=== PATIENT | male | born 1985 | race African-American/Black ===

== ENCOUNTER → 2020-01-19 | Outpatient (REF) | payer MEDICAID ==
[2020-01-19 13:42] LABS: ALBUMIN 3.8 GM/DL (3.2-5.2); ALT/SGPT 57 U/L (12-78); BILIRUBIN,TOTAL 0.3 MG/DL (0.2-1.0); BLOOD UREA NITROGEN 16 MG/DL (7-18); CALCIUM LEVEL 9.5 MG/DL (8.5-10.1); CARBON DIOXIDE LEVEL 31 MEQ/L (21-32); CHLORIDE LEVEL 101 MEQ/L (98-107); CHOLESTEROL LEVEL 208 MG/DL (<200); CHOLESTEROL RISK RATIO 3.525 (<5); CREATININE FOR GFR 1.16 MG/DL (0.70-1.30); FREE T4 1.24 NG/DL (0.76-1.46); GLOMERULAR FILTRATION RATE > 60.0 (>60); GLUCOSE, FASTING 168 MG/DL (70-100); HDL CHOLESTEROL 59 MG/DL (>40); LDL CHOLESTEROL 131 MG/DL (<100); NON-HDL-C 149 MG/DL; POTASSIUM SERUM 4.8 MEQ/L (3.5-5.1); SODIUM LEVEL 137 MEQ/L (136-145); TRIGLYCERIDES LEVEL 91 MG/DL (<150)
== END ==
LOC: M LAB REF 11:32
PROVIDERS: ATTEND Family Medicine Addiction Medicine
DX: R73.02 Impaired glucose tolerance (oral) (principal); G47.33 Obstructive sleep apnea (adult) (pediatric); I10 Essential (primary) hypertension

== ENCOUNTER → 2020-02-06 | Outpatient (CLI) | payer OTHER ==
--- NOTE | 2020-02-12 11:32 | SLEEPHOME ---
DATE: 02/06/2020 ORDERED BY: Dr. Ragsdale [facility] home sleep testing was performed due to concern for the obstructive sleep apnea syndrome in this patient with a prior history of same. For testing, a nocturnal T3 respiratory monitoring device was used. Continuous record was made of pulse, oxygen saturation, air flow, chest and abdominal strain, and body position. Nine hours and 59 minutes of data were reviewed. There were 5 hours and 49 minutes marked as time in bed. During the interval marked time in bed, there were 372 respiratory events identified of 10 seconds in duration or greater for a respiratory event index of 63.9. The events were primarily obstructive, not exclusive to sleep posture. Baseline pulse rate was 93. Pulse rate ranged 29- 112. Baseline saturation was 90%. Oxygen desaturations were seen to 59%. Testing was performed in both the supine and nonsupine positions. IMPRESSION: Abnormal home sleep testing with repetitive respiratory events and oxygen desaturations to 59% with a respiratory event index of 63.9 is consistent with the obstructive sleep apnea syndrome. RECOMMENDATION: The patient should be encouraged to undergo a formal sleep evaluation and pressure titration. MTDD
== END ==
LOC: M SLEEP HO 01-31 11:59
PROVIDERS: ATTEND Internal Medicine Pulmonary Disease
DX: G47.33 Obstructive sleep apnea (adult) (pediatric) (principal)

== ENCOUNTER 2020-02-16 09:31 | Emergency (ER) | payer OTHER ==
[~2020-02-16] VITALS: Ht 198.1 cm; Wt 177.6 kg
[2020-02-16] MEDS ORDERED: HYDR25TAB PO (09:45)
[2020-02-16] MEDS ORDERED: NORV5TAB PO (09:45)
[2020-02-16] MEDS ORDERED: METF500T13 PO (09:45)
--- NOTE | 2020-02-16 10:24 | REPVR ---
PROCEDURE INFORMATION: Exam: CT Head Without Contrast Exam date and time: 02/16/2020 9:54 AM Age: 34 years old Clinical indication: Numbness / parasthesia; Left; Additional info: Paralysis of L side of face TECHNIQUE: Imaging protocol: Computed tomography of the head without contrast. Radiation optimization: All CT scans at this facility use at least one of these dose optimization techniques: automated exposure control; mA and/or kV adjustment per patient size (includes targeted exams where dose is matched to clinical indication); or iterative reconstruction. COMPARISON: No relevant prior studies available. FINDINGS: Brain: There is no acute intracranial hemorrhage. No extra-axial fluid collection. No evidence of acute infarct. Nguyen white differentiation is intact. There is no evidence of mass. There is no mass effect or midline shift. Cerebral ventricles: No ventriculomegaly. Bones/joints: No acute fracture. Paranasal sinuses: Visualized sinuses are unremarkable. No fluid levels. Mastoid air cells: No significant mastoid effusion. Soft tissues: Unremarkable as visualized. IMPRESSION: No evidence of acute intracranial abnormality. No acute hemorrhage. No evidence of acute infarct or mass. Electronically signed by: Terri Branch On 02/16/2020 10:25:03 AM
[2020-02-16] MEDS ORDERED: PRED20TA PO (10:38)
[2020-02-16 11:26] LABS: BASO # 0.1 10^3/uL (0.0-0.2); BASO % 0.7 % (0.0-1.0); EOS # 0.3 10^3/uL (0.0-0.5); EOS % 2.8 % (0.0-3.0); HEMATOCRIT 50.9 % (42.0-52.0); HEMOGLOBIN 15.9 g/dl (13.5-17.5); LYMPH # 3.3 10^3/uL (1.5-5.0); LYMPH % 32.1 % (24.0-44.0); MEAN CORPUSCULAR HGB CONC 31.2 g/dl (32.0-36.5); MEAN CORPUSCULAR VOLUME 80.2 fl (80.0-96.0); MONO # 0.9 10^3/uL (0.0-0.8); MONO % 8.7 % (0.0-5.0); NEUTROPHILS # 5.7 10^3/uL (1.5-8.5); NEUTROPHILS % 55.3 % (36.0-66.0); PLATELET COUNT, AUTOMATED 402 10^3/uL (150-450); RED BLOOD COUNT 6.35 10^6/uL (4.30-6.10); WHITE BLOOD COUNT 10.2 10^3/uL (4.0-10.0)
[2020-02-16 11:54] LABS: ERYTHROCYTE SEDIMENTATION RATE 17 mm/hr (0-15)
[2020-02-16 12:00] LABS: BLOOD UREA NITROGEN 18 MG/DL (7-18); CALCIUM LEVEL 9.5 MG/DL (8.5-10.1); CARBON DIOXIDE LEVEL 27 MEQ/L (21-32); CHLORIDE LEVEL 101 MEQ/L (98-107); CREATININE FOR GFR 0.93 MG/DL (0.70-1.30); GLOMERULAR FILTRATION RATE > 60.0 (>60); GLUCOSE, FASTING 130 MG/DL (70-100); POTASSIUM SERUM 3.9 MEQ/L (3.5-5.1); SODIUM LEVEL 136 MEQ/L (136-145); THYROID STIMULATING HORMONE 0.619 uIU/ML (0.358-3.740)
[2020-02-16 12:11] VITALS: BP 151/91
== END 2020-02-16 12:16 | disposition home or self-care (01) ==
LOC: M ED 09:31
DX: G51.0 Bell's palsy (principal); E11.9 Type 2 diabetes mellitus without complications; E78.5 Hyperlipidemia, unspecified; I10 Essential (primary) hypertension; F17.200 Nicotine dependence, unspecified, uncomplicated; F12.10 Cannabis abuse, uncomplicated; Z79.84 Long term (current) use of oral hypoglycemic drugs; Z79.899 Other long term (current) drug therapy

== ENCOUNTER 2020-04-17 11:03 | Emergency (ER) | payer OTHER ==
[~2020-04-17] VITALS: Ht 198.1 cm; Wt 169.8 kg
[~2020-04-17 11:03] MED LIST: HYDR-3490 PO; METF500T13 PO; NORV5TAB PO; PRED20TA PO
--- OUTSIDE RECORDS SUMMARY | 2020-04-17 11:12 | CCD ---
Author Organization Unknown Address [address] [place] [address] Phone [phone] Care Team Providers Care Software Developer Manager Name Role Phone Autumn Vivas Unavailable Unavailable Allergies Code Code System Name Reaction Severity Status Onset NKDA Medications Name Status Start Date Stop Date Accu-Chek Judy Plus test strips Take 1 strip by miscell. route. Active Not ottoniel ilable amlodipine 5 mg tablet Take 1 tablet every day by oral route. Active Not available amoxicillin 500 mg capsule TAKE ONE CAPSULE BY MOUTH EVERY 8 HOURS UNTIL FINISHED Completed 02/05/2020 hydrochlorothiazide 25 mg tablet TAKE ONE TABLET BY MOUTH EVERY DAY Completed 11/2019 lisinopril 20 mg tablet TAKE ONE TABLET BY MOUTH EVERY DAY Active Not available metformin 500 mg tablet Take 1 tablet twice a day by oral route. 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 Results Lab Results Date Name Specimen Result Interpretation Description Value Range Status Address 01/30/2020 HbA1C (Hemoglobin a1C), Blood Blood venous No observation recorded. Main [facility] doretha: [address] [facility] 01/19/2020 CMP, Serum or Plasma Blood venous High Glu cose, Fasting 168 mg/dL 70-100 mg/dL [facility] nter: [address] [facility] Blood venous Normal Blood Urea Nitrogen 16 mg/dL 7-18 mg/dL [facility]: [address] [facility] Blood venous Normal Creatinine for GFR 1.16 mg/dL 0.70-1.30 mg/dL [facility]: [address] [facility] Blood venous Normal Glomerular Filtration Rate > 60.0 >60 [facility]: [address] [facility] Blood venous Normal Sodium Level 137 mEq/L 136-14 5 mEq/L [facility]: [address] [facility] Blood venous Normal Potassium Serum 4.8 mEq/L 3.5 -5.1 mEq/L [facility]: [address] [facility] Blood venous Normal Chloride Level 101 mEq/L 98-1 07 mEq/L [facility]: [address] [facility] Blood venous Normal Carbon Dioxide Level 31 mEq/L 21-32 mEq/L [facility]: [address] [facility] Blood venous Low Anion Gap 5 mEq/L 8-16 mEq/L [facility]: [address] [facility] Blood venous Normal Calcium Level 9.5 mg/dL 8.5-1 0.1 mg/dL [facility]: [address] [facility] Blood venous Normal AST/SGOT 31 U/L 7-37 U/L [facility]: [address] [place] [address] Blood venous Normal ALT/SGPT 57 U/L 12-78 U/L [facility]: [address] [facility] Blood venous Normal Alkaline Phosphatase 93 U/L 4 5-117 U/L [facility]: 0 [facility] Blood venous Normal Bilirubin,total 0.3 mg/dL 0.2 -1.0 mg/dL [facility]: [address] [place] [address] Blood venous Normal Total Protein 8.0 gm/dL 6.4-8 .2 gm/dL [facility]: [address] [place] [address] Blood venous Normal Albumin 3.8 gm/dL 3.2-5.2 gm/ dL [facility]: [address] [place] [address] Blood venous Normal Albumin/globulin Ratio 0.9 [facility]: [address] [place] [address] 01/19/2020 Lipid Panel, Blood Blood venous Normal Trigl ycerides Level 91 mg/dL <150 mg/dL [facility] nter: [address] [facility] Blood venous High Cholesterol Level 208 mg/dL < 200 mg/dL [facility]: 0 [facility] Blood venous Normal HDL Cholesterol 59 mg/dL >40 mg/dL [facility]: [address] [facility] Blood venous High LDL Cholesterol 131 mg/dL <10 0 mg/dL [facility]: [address] [place] [address] Blood venous Normal Non-hdl-c 149 mg/dL Fi nal [facility]: [address] [facility] Blood venous Normal Cholesterol Risk Ratio 3.525 <5 [facility]: [address] [place] [address] 01/19/2020 TSH, Serum or Plasma Normal Thyroid Stimulating Hormone 1.190 uIU/mL 0.358-3.740 uIU/mL [facility] nter: [address] [place] [address] 01/19/2020 T4, Free, Serum Normal Free T4 1.24 NG/dL 0.76-1.46 NG/dL [facility]: [address] [place] [address] 01/19/2020 HbA1C (Hemoglobin a1C), Blood Blood venous Normal Hemoglobin a1C 8.0 % [facility]: [address] [place] [address] Blood venous High Estimated Average Glucose 183 mg/dL 60-110 mg/dL [facility]: [address] [place] [address] Past Encounters 02/05/2020 Type 2 Diabetes Mellitus without Complication; Hypertensive Disorder Matt Spain MD: [address] [place] [phone], Ph. 01/19/2020 Matt Spain MD: [address] [place] [phone], Ph. Social History Tobacco Smoking Status Heavy Tobacco Smoker (1 PPD) Vaccine List None recorded. Plan of Care Reminders Provider Appointments None recorded. Lab None recorded. Referral None recorded. Procedures None recorded. Surgeries None recorded. Imaging None recorded. Vitals Height Weight BMI Blood Pressure 78 in 401 lbs 16 oz 46.5 kg/m2 146/89 mm[Hg]
--- OUTSIDE RECORDS SUMMARY | 2020-04-17 11:13 | CCD ---
Author Author [facility] Organization [facility] Address Unknown Phone Unavailable Care Team Providers Care Tight Barrel Inspector Name Role Phone [facility], JLAM Unavailable Unavailable Uday Spain MD Unavailable Unavailable Uday Spain MD Unavailable Unavailable Uday Spain MD Unavailable Unavailable Uday Spain MD Unavailable Unavailable Uday Spain MD Unavailable Unavailable Uday Spain MD Unavailable Unavailable Uday Spain MD Unavailable Unavailable Uday Spain MD Unavailable Unavailable Uday Spain MD Unavailable Unavailable Uday Spain MD Unavailable Unavailable Uday Spain MD Unavailable Unavailable Uday Spain MD Unavailable Unavailable Uday Spain MD Unavailable Unavailable Uday Spain MD Unavailable Unavailable Uday Spain MD Unavailable Unavailable Uday Spain MD Unavailable Unavailable Uday Spain MD Unavailable Unavailable Uday Spain MD Unavailable Unavailable Uday Spain MD Unavailable Unavailable Uday Spain MD Unavailable Unavailable Uday Spain MD Unavailable Unavailable Uday Spain MD Unavailable Unavailable Uday Spain MD Unavailable Unavailable Uday Spain MD Unavailable Unavailable Uday Spain MD Unavailable Unavailable Uday Spain MD Unavailable Unavailable Uday Spain MD Unavailable Unavailable Uday Spain MD Unavailable Unavailable Uday Spain MD Unavailable Unavailable Uday Spain MD Unavailable Unavailable Uday Spain MD Unavailable Unavailable Uday Spain MD Unavailable Unavailable Uday Spain MD Unavailable Unavailable Uday Spain MD Unavailable Unavailable Uday Spain MD Unavailable Unavailable Uday Spain MD Unavailable Unavailable Uday Spain MD Unavailable Unavailable Uday Spain MD Unavailable Unavailable Uday Spain MD Unavailable Unavailable Uday Spain MD Unavailable Unavailable Uday Spain MD Unavailable Unavailable Uday Spain MD Unavailable Unavailable Uday Spain MD Unavailable Unavailable Uday Spain MD Unavailable Unavailable Uday Spain MD Unavailable Unavailable Uday Spain MD Unavailable Unavailable Uday Spain MD Unavailable Unavailable Uday Spain MD Unavailable Unavailable Uday Spain MD Unavailable Unavailable Uday Spain MD Unavailable Unavailable Uday Spain MD Unavailable Unavailable Uday Spain MD Unavailable Unavailable Uday Spain MD Unavailable Unavailable Uday Spain MD Unavailable Unavailable Uday Spain MD Unavailable Unavailable Uday Spain MD Unavailable Unavailable Uday Spain MD Unavailable Unavailable Uday Spain MD Unavailable Unavailable Uday Spain MD Unavailable Unavailable Uday Spain MD Unavailable Unavailable Uday Spain MD Unavailable Unavailable Uday Spain MD Unavailable Unavailable Uday Spain MD Unavailable Unavailable Uday Spain MD Unavailable Unavailable Uday Spain MD Unavailable Unavailable Uday Spain MD Unavailable Unavailable Uday Spain MD Unavailable Unavailable Uday Spain MD Unavailable Unavailable Uday Spain MD Unavailable Unavailable Uday Spain MD Unavailable Unavailable Uday Spain MD Unavailable Unavailable Uday Spain MD Unavailable Unavailable Uday Spain MD Unavailable Unavailable Uday Spain MD Unavailable Unavailable Uday Spain MD Unavailable Unavailable Uday Spain MD Unavailable Unavailable Uday Spain MD Unavailable Unavailable Uday Spain MD Unavailable Unavailable Uday Spain MD Unavailable Unavailable Uday Spain MD Unavailable Unavailable Uday Spain MD Unavailable Unavailable Uday Spain MD Unavailable Unavailable Uday Spain MD Unavailable Unavailable Uday Spain MD Unavailable Unavailable Uday Spain MD Unavailable Unavailable Uday Spain MD Unavailable Unavailable Uday Spain MD Unavailable Unavailable Uday Spain MD Unavailable Unavailable Uday Spain MD Unavailable Unavailable Uday Spain MD Unavailable Unavailable Uday Spain MD Unavailable Unavailable Uday Spain MD Unavailable Unavailable Uday Spain MD Unavailable Unavailable Uday Spain MD Unavailable Unavailable Uday Spain MD Unavailable Unavailable Uday Spain MD Unavailable Unavailable Uday Spain MD Unavailable Unavailable Uday Spain MD Unavailable Unavailable Uday Spain MD Unavailable Unavailable Uday Spain MD Unavailable Unavailable Uday Spain MD Unavailable Unavailable Uday Spain MD Unavailable Unavailable Uday Spain MD Unavailable Unavailable Uday Spain MD Unavailable Unavailable Uday Spain MD Unavailable Unavailable Uday Spain MD Unavailable Unavailable Uday Spain MD Unavailable Unavailable Uday Spain MD Unavailable Unavailable Uday Spain MD Unavailable Unavailable Uday Spain MD Unavailable Unavailable Uday Sapin MD Unavailable Unavailable Uday Spain MD Unavailable Unavailable Uday Spain MD Unavailable Unavailable Uday Spain MD Unavailable Unavailable Uday Spain MD Unavailable Unavailable Uday Spain MD Unavailable Unavailable Uday Spain MD Unavailable Unavailable SpainUday MD Unavailable Unavailable SpainUday MD Unavailable Unavailable SpainUday MD Unavailable Unavailable SpainUday MD Unavailable Unavailable Uday Spain MD Unavailable Unavailable Uday Spain MD Unavailable Unavailable Uday Spain MD Unavailable Unavailable Uday Spain MD Unavailable Unavailable Uday Spain MD Unavailable Unavailable Uday Spain MD Unavailable Unavailable SpainUady MD Unavailable Unavailable SpainUday MD Unavailable Unavailable SpainUday MD Unavailable Unavailable Uday Spain MD Unavailable Unavailable Uday Spain MD Unavailable Unavailable Uday Spain MD Unavailable Unavailable Uday Spain MD Unavailable Unavailable Uday Spain MD Unavailable Unavailable Uday Spain MD Unavailable Unavailable Uday Spain MD Unavailable Unavailable Uday Spain MD Unavailable Unavailable Uday Spain MD Unavailable Unavailable Uday Spain MD Unavailable Unavailable Uday Spain MD Unavailable Unavailable Uday Spain MD Unavailable Unavailable Uday Spain MD Unavailable Unavailable Uday Spain MD Unavailable Unavailable Uday Spain MD Unavailable Unavailable Uday Spain MD Unavailable Unavailable Uday Spain MD Unavailable Unavailable Uday Spain MD Unavailable Unavailable Uday Spain MD Unavailable Unavailable Uday Spain MD Unavailable Unavailable Uday Spain MD Unavailable Unavailable Uday Spain MD Unavailable Unavailable Uday Spain MD Unavailable Unavailable Uday Spain MD Unavailable Unavailable Uday Spain MD Unavailable Unavailable Uday Spain MD Unavailable Unavailable Uday Spain MD Unavailable Unavailable Uday Spain MD Unavailable Unavailable Uday Spain MD Unavailable Unavailable Uday Spain MD Unavailable Unavailable Uday Spain MD Unavailable Unavailable Uday Spain MD Unavailable Unavailable Uday Spain MD Unavailable Unavailable Uday Spain MD Unavailable Unavailable Uday Spain MD Unavailable Unavailable Uday Spain MD Unavailable Unavailable Uday Spain MD Unavailable Unavailable Uday Spain MD Unavailable Unavailable Uday Spain MD Unavailable Unavailable Uday Spain MD Unavailable Unavailable Uday Spain MD Unavailable Unavailable Uday Spain MD Unavailable Unavailable Uday Spain MD Unavailable Unavailable Uday Spain MD Unavailable Unavailable Uday Spain MD Unavailable Unavailable Uday Spain MD Unavailable Unavailable Uday Spain MD Unavailable Unavailable Uday Spain MD Unavailable Unavailable Re-disclosure Warning The records that you are about to access may contain information from federally-assisted alcohol or drug abuse programs. If such information is present, then the following federally mandated warning applies: This information has been disclosed to you from records protected by federal confidentiality rules (42 CFR part 2). The federal rules prohibit you from making any further disclosure of this information unless further disclosure is expressly permitted by the written consent of the person to whom it pertains or as otherwise permitted by 42 CFR part 2. A general authorization for the release of medical or other information is NOT sufficient for this purpose. The Federal rules restrict any use of the information to criminally investigate or prosecute any alcohol or drug abuse patient.The records that you are about to access may contain highly sensitive health information, the redisclosure of which is protected by Article 27-F of the [facility] Public Health law. If you continue you may have access to information: Regarding HIV / AIDS; Provided by facilities licensed or operated by the [facility] Office of Mental Health; or Provided by the [facility] Office for People With Developmental Disabilities. If such information is present, then the following [facility] mandated warning applies: This information has been disclosed to you from confidential records which are protected by state law. State law prohibits you from making any further disclosure of this information without the specific written consent of the person to whom it pertains, or as otherwise permitted by law. Any unauthorized further disclosure in violation of state law may result in a fine or fci sentence or both. A general authorization for the release of medical or other information is NOT sufficient authorization for further disc losure. Encounters Encounter Providers Location Date Indications Data Source(s ) Matt Spain MD: [address] [place] [phone], Ph. Attender: Matt Spain MD [facility] Medical 02/05/2020 12:00:00 AM EST [facility]) Matt Spain MD: [address] [place] [phone], Ph. Attender: Matt Spain MD [facility] Medical 01/19/2020 12:00:00 AM EDT [facility] ([facility]) Outpatient Attender: Matt GA 01/18/2020 02:33:00 PM EDT [facility] Outpatient Attender: Matt BROOKS 01/11/2020 09:28:00 AM EDT [facility] Outpatient Attender: Matt BROOKS 01/11/2020 09:06:01 AM EDT [facility] Outpatient Attender: Matt BROOKS 01/11/2020 08:24:00 AM EDT [facility] Outpatient Attender: Matt BROOKS 01/11/2020 08:10:00 AM EDT [facility] Outpatient Attender: JEANETTE NG [facility] 01/11/2020 08:08:00 AM EDT [facility] Outpatient Attender: JEANETTE NC [facility] 12/21/2019 07:19:00 AM EDT [facility] Outpatient Attender: JEANETTE NG [facility] 12/20/2019 10:33:00 AM EDT [facility] Outpatient Attender: JEANETTE NC [facility] 12/20/2019 09:26:02 AM EDT [facility] Outpatient Attender: JEANETTE NG [facility] 12/20/2019 09:26:01 AM EDT [facility] Outpatient Attender: JEANETTE NC [facility] 12/06/2019 09:43:02 AM EDT [facility] Outpatient Attender: JEANETTE NG [facility]C 11/30/2019 05:10:01 PM EDT [facility] Outpatient Attender: JEANETTE NG [facility] 11/16/2019 11:44:01 AM EDT [facility] Outpatient Attender: JEANETTE NG [facility] 11/16/2019 11:27:01 AM EDT [facility] Outpatient Attender: JEANETTE NG [facility] 11/16/2019 11:26:01 AM EDT [facility] Outpatient Attender: JEANETTE NC [facility] 11/15/2019 12:02:48 AM EDT [facility] Outpatient Attender: JEANETTE NG [facility] 11/14/2019 02:20:01 PM EDT [facility] Outpatient Attender: JEANETTE NG [facility] 11/14/2019 02:18:00 PM EDT [facility] Outpatient Attender: JEANETTE NG [facility] 11/14/2019 02:01:01 PM EDT [facility] Outpatient Attender: JEANETTE NG [facility] 11/14/2019 01:57:00 PM EDT [facility] Outpatient Attender: [facility]TE [facility] 11/14/2019 01:28:03 PM EDT [facility] Outpatient Attender: JEANETTE [facility] 11/14/2019 01:28:03 PM EDT [facility] Outpatient Attender: JEANETTE [facility] 11/14/2019 01:22:00 PM EDT [facility] Medications Medication Brand Name Start Date Product Form Dose Route Admi nistrative Instructions Pharmacy Instructions Status Indications Reaction Description Data Source(s) 20 mg 02/16/2020 12:00:00 AM EST tablet 23 TAKE 3 TABS. BY MOUTH DAYS 1-5, THEN TAKE 2 & 1/2 TABS. DAY 6, THEN 2 TABS. DAY 7, THEN 1 & 1/2 TABS. DAY 8, 1 TAB. DAY 9, 0.5 TAB. DAY 10 TAKE 3 TABS. BY MOUTH DAYS 1-5, THEN RADHA E 2 & 1/2 TABS. DAY 6, THEN 2 TABS. DAY 7, THEN 1 & 1/2 TABS. DAY 8, 1 TAB. DAY 9, 0.5 TAB. DAY 10 SOLD: 02/16/2020 [facility] BLOOD-GLUCOSE METER 02/05/2020 12:00:00 AM EST misc 1 USE DIRECTED USE DIRECTED SOLD: 02/17/2020 [facility] 5 mg 02/05/2020 12:00:00 AM EST tablet 30 TAKE ONE TABLET BY MOUTH EVERY DAY TAKE ONE TABLET BY MOUTH EVERY DAY SOLD: 02/05/2020 [facility] 500 mg 02/05/2020 12:00:00 AM EST tablet 12 TAKE ONE TABLET BY MOUTH TWICE A DAY TAKE ONE TABLET BY MOUTH TWICE A DAY SOLD: 03/17/2020 [facility] BLOOD SUGAR DIAGNOSTIC 02/05/2020 12:00:00 AM EST strip 50 USE TO TEST ONCE DAILY USE TO TEST ONCE DAILY SOLD: 02/17/2020 [facility] 33 gauge 02/05/2020 12:00:00 AM EST misc 100 USE TO TEST ONCE DAILY USE TO TEST ONCE DAILY SOLD: 02/17/2020 [facility] Metformin hydrochloride 500 MG Oral Tablet METFORMIN HCL 02/05/2020 12:00:00 AM EST tablet 12 TAKE ONE TABLET BY MOUTH TWI CE A DAY TAKE ONE TABLET BY MOUTH TWICE A DAY SOLD: 03/09/2020 [facility] 5 mg 02/05/2020 12:00:00 AM EST tablet 30 TAKE ONE TABLET BY MOUTH EVERY DAY TAKE ONE TABLET BY MOUTH EVERY DAY SOLD: 03/17/2020 [facility] 5 mg 02/05/2020 12:00:00 AM EST tablet 6 TAKE ONE TABLET BY MOUTH EVERY DAY TAKE ONE TABLET BY MOUTH EVERY DAY SOLD: 03/09/2020 [facility] Metformin hydrochloride 500 MG Oral Tablet METFORMIN HCL 02/05/2020 12:00:00 AM EST tablet 60 TAKE ONE TABLET BY MOUTH TWI CE A DAY TAKE ONE TABLET BY MOUTH TWICE A DAY SOLD: 02/05/2020 [facility] 50 mg 02/03/2020 12:00:00 AM EST capsule 15 TAKE ONE CAPSULE BY MOUTH THREE TIMES A DAY FOR 5 DAYS TAKE ONE CAPSULE BY MOUTH THREE TIMES A DAY FOR 5 DAYS SOLD: 02/03/2020 [facility] 25 mg 01/03/2020 12:00:00 AM EDT tablet 30 TAKE ONE TABLET BY MOUTH EVERY DAY TAKE ONE TABLET BY MOUTH EVERY DAY SOLD: 02/17/2020 [facility] 25 mg 01/03/2020 12:00:00 AM EDT tablet 30 TAKE ONE TABLET BY MOUTH EVERY DAY TAKE ONE TABLET BY MOUTH EVERY DAY SOLD: 01/03/2020 [facility] 25 mg 01/03/2020 12:00:00 AM EDT tablet 30 TAKE ONE TABLET BY MOUTH EVERY DAY TAKE ONE TABLET BY MOUTH EVERY DAY SOLD: 03/17/2020 [facility] 20 mg 11/30/2019 12:00:00 AM EDT tablet 30 TAKE ONE TABLET BY MOUTH EVERY DAY TAKE ONE TABLET BY MOUTH EVERY DAY SOLD: 11/30/2019 [facility] 25 mg 11/30/2019 12:00:00 AM EDT tablet 30 TAKE ONE TABLET BY MOUTH EVERY DAY TAKE ONE TABLET BY MOUTH EVERY DAY SOLD: 11/30/2019 [facility] 500 mg 11/14/2019 12:00:00 AM EDT capsule 21 TAKE ONE CAPSULE BY MOUTH EVERY 8 HOURS UNTIL FINISHED TAKE ONE CAPSULE BY MOUTH EVERY 8 HOURS UNTIL FINISHED SOLD: 11/15/2019 [facility] Amoxicillin 500 MG Oral Capsule amoxicil nilda 500 mg capsule TAKE ONE CAPSULE BY MOUTH EVERY 8 HOURS UNTIL FINISHED amoxicillin 500 mg capsule TAKE ONE CAPS ULE BY MOUTH EVERY 8 HOURS UNTIL FINISHED completed amoxicillin 500 MG Oral Capsule [facility]) Hydrochlorothiazide 25 MG Oral Tablet hy drochlorothiazide 25 mg tablet TAKE ONE TABLET BY MOUTH EVERY DAY hydrochlorothiazide 25 mg tablet TAKE ON E TABLET BY MOUTH EVERY DAY completed hydroc hlorothiazide 25 MG Oral Tablet [facility] ([facility]) Insurance Providers Payer name Policy type / Coverage type Policy ID Covered alliance party ID Covered alliance party's relationship to coello Policy Coello Plan Information [facility] [id number] SP [id number] O UNAVAILABLE UNAVAILA BLE [facility] [id number] SP [id number] [place]EDNY [id number] SP [id number] Medicaid P [id number] S [id number] Managed Care - [facility] Community Plan P UNAVAILABLE S UNAVAILABLE Medicaid S UNAVAILABLE S UNAVAILA BLE Problems, Conditions, and Diagnoses Code Display Name Description Problem Type Effective Dates Data Source(s) 63634158 Hypertensive disorder Hypertensive Disorder Problem 02/05/2020 12:00:00 AM EST [facility]) [id number] Type 2 diabetes mellitus without complic ation Type 2 Diabetes Mellitus without Complication Problem 02/05/2020 12:00:00 AM EST [facility] ([facility]) V85.42 BMI 45.0-49.9 BMI 45.0-49.9 12/20/2019 09:25:04 AM EDT [facility] 278.01 MORBID OBESITY MORBID OBESITY 12/20/2019 09:25: 04 AM EDT [facility] 790.29 Impaired glucose tolerance Impaired glucose tolerance 12/20/2019 09:25:04 AM EDT [facility] 327.23 Obstructive sleep apnea of adult Obstructive sleep waste machine offbearer ea of adult 12/20/2019 09:25:04 AM EDT [facility] 401.1 Benign hypertension Benign hypertension 020 09:25:04 AM EDT [facility] 521.00 Dental caries Dental caries 11/14/2019 01:27:46 PM EDT [facility] [id number] 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 Dental Arch Length Loss Secondary to Dental Caries Problem 11/14/2019 12:00:00 AM EDT [facility] ([facility]) Results ID Date Data Source [id number] 01/30/2020 03:15:00 PM EST [facility] ([facility]) Name Value Range Interpretation Code Description Data Bella rce(s) Supporting Document(s) ID Date Data Source [id number] 01/19/2020 08:07:00 AM EDT [place] ([facility]) Name Value Range Interpretation Code Description Data Bella rce(s) Supporting Document(s) estimated average glucose 183 mg/dL 60-110 Above high norm al Estimated Average Glucose [facility] ([facility]) Hemoglobin A1c/Hemoglobin.total in Blood 8.0 % normal Hemoglobin a1C [place] ([facility]) ID Date Data Source [id number] 01/19/2020 08:07:00 AM EDT [facility] [place] ([facility]) Name Value Range Interpretation Code Description Data Bella rce(s) Supporting Document(s) free T4 1.24 NG/dL 0.76-1.46 normal Free T4 [facility] ([facility]) ID Date Data Source [id number] 01/19/2020 08:07:00 AM EDT [facility] [place] ([facility]) Name Value Range Interpretation Code Description Data Bella rce(s) Supporting Document(s) thyroid stimulating hormone 1.190 uIU/mL 0.358-3.740 normal Thyroid Stimulating Hormone [facility] ([facility]) ID Date Data Source [id number] 01/19/2020 08:07:00 AM EDT [facility] [place] ([facility]) Name Value Range Interpretation Code Description Data Bella rce(s) Supporting Document(s) Cholesterol in LDL [Mass/volume] in Serum or Plasma 131 mg/dL <100 Above high normal LDL Cholesterol [facility]) cholesterol level 208 mg/dL <200 Above high normal Cholesterol Level [facility] ([facility]) triglycerides level 91 mg/dL <150 normal Triglycerides Le leslye [facility] ([facility]) HDL cholesterol 59 mg/dL >40 normal HDL Cholesterol [facility] ([facility]) non-HDL-C 149 mg/dL normal Non-hdl-c [facility] ([facility]) cholesterol risk ratio <5 normal Cholesterol R isk Ratio [place] ([facility]) ID Date Data Source [id number] 01/19/2020 08:07:00 AM EDT [place] ([facility]) Name Value Range Interpretation Code Description Data Bella rce(s) Supporting Document(s) glucose, fasting 168 mg/dL 70-100 Above high normal Glucose, Fas ting [facility] ([facility]) creatinine for GFR 1.16 mg/dL 0.70-1.30 normal Creatinine for GF R [place] ([facility]) blood urea nitrogen 16 mg/dL 7-18 normal Blood Urea Nitro gen [facility] ([facility]) glomerular filtration rate > 60.0 >60 normal Glomerula r Filtration Rate [place] ([facility]) sodium level 137 mEq/L 136-145 normal Sodium Level [facility] ([facility]) carbon dioxide level 31 mEq/L 21-32 normal Carbon Dioxide Level [facility] ([facility]) anion gap 5 mEq/L 8-16 Below low normal Anion Gap [place] ( [facility]) potassium serum 4.8 mEq/L 3.5-5.1 normal Potassium [facility] chloride level 101 mEq/L 98-107 normal Chloride Level [place] ([facility]) calcium level 9.5 mg/dL 8.5-10.1 normal Calcium Level [place] ( [facility]) alkaline phosphatase 93 U/L 45-117 normal Alkaline Phosph atase [facility] ([facility]) ALT/SGPT 57 U/L 12-78 normal ALT/SGPT [facility] ([facility]) AST/SGOT 31 U/L 7-37 normal AST/SGOT [place] ([facility]) bilirubin,total 0.3 mg/dL 0.2-1.0 normal Bilirubin,total [facility]) total protein 8.0 gm/dL 6.4-8.2 normal Total Protein [facility] ( [facility]) albumin/globulin ratio normal Albumin/globu nilda Ratio [facility] ([facility]) albumin 3.8 gm/dL 3.2-5.2 normal Albumin [place] ([facility]) ID Date Data Source [id number] 01/11/2020 08:08:32 AM EDT [facility] Vital SignsBlood Pressure: 174/104 Patient History Medical History:High BPpre DMSurgical History:No known surgical historyFamily History:DMHTNheart diseaseSocial/Personal History: Smoking Status: current every day smokerDo you vape? NoCurrent Problems: BMI 45.0-49.9 (ICD-V85.42) (BJV80-Z26.42)MORBID OBESITY (ICD-278.01) (VFB43-S16.01)Impaired glucose tolerance (ICD-790.29) (YXL43-G55.02)Obstructive sleep apnea of adult (ICD-327.23) (LCC32-J13.33)Benign hypertension (ICD-401.1) (OJD88-K95)Dental caries (ICD-521.00) (ICD10- K02.9)Problem list reviewed during this update.Current Medications: HYD ROCHLOROTHIAZIDE 25 MG ORAL TABLET (HYDROCHLOROTHIAZIDE) take one tab po once daily; Route: ORALLISINOPRIL 20 MG ORAL TABLET (LISINOPRIL) take one pill once daily; Route: ORALAMOXICILLIN 500 MG CAPS (AMOXICILLIN) 1 tablet by mouth every 8 hours until gone; Route: ORALMedication list reviewed during this update.Allergy list reviewed during this update.No known allergies.Patient declined [facility].Past Medical History:(reviewed - no changes required) High BPpre DM Dental Chart: Procedures:Type - CDT Code - Description B - (D0210) Intraoral, complete series of radiographic images ( Performed by Briana Cortés RDH) B - (D0150) Comprehensive oral evaluation - new or established patient (Performed by Tejal Pretty DDS) Treatments:Type - CDT Code - Description T - (D2150) Amalgam, 2 surfaces, primary or permanent on Tooth # 15 on Tooth Surface OD (Performed by Briana Cortés RDH) Existing:Type - CDT Code - Description[E] Decay On #15 Surface OD[E] Amalgam [place] On #32 Surface O[E] Missing - [place] and Root On #1 Surface O Region XR, #2 Surface O Region XR, #31 Surface O Region XR Chart Notes:edilma (Jan 11 2020 9:03AM): Pt states he was seen about a year ago at another dental site in [place] and had several teeth extracted. Pt was seen here in Oct for an emergency appointment and was suppose to be seen for extraction of #17 and 18. Pt c/o discomfort when he is eating (teeth were not removed.)OH-[facility] to [facility] exam, FMXPt states he brushes usually every am and flosses occassionally. Calculus seen generalized on the radiographs. Pt states last prophy was years ago. Pt is aware that it appears he is a perio patient, significant Horizontal bone loss with furcation involvement present on #31. present on radiographs pt is aware. Unable to do probings today because pt requires a medical clearance. Med HX pt has been seen once a adult med for hypertension and pre DM. Pt states he is taking his BP meds as directed and took them about an hour prior to his dental visit today. Manual BP of 174/104. Stressed to pt the importance of keeping his appointment with his GP next week.Exc pt. N/V-Filling and probings needed to send out for authorization for perio scaling. Referral revised to read extraction of #[address] Pretty wants to keep #17 as pt is using it to chew and it is not mobile. Medical clearance needed prior to any further dental appointments. Briana Cortés RDH by edilma (01/11/2020 9:00 AM): ; franky (Jan 11 2020 9:27AM): [facility](-). CC: none. Reviewed Xrays. Exam: caries detected. [place] to attempt # 15 filling, if it does not work will refer for exo. Pt. understand. Generalised boneloss but teeth are still stable. OCS: WNL, IO/ EO completed, No significant hard findings upon clinical exam.Additional PPE requirements due to COVID-19 in the dental setting, N95, surgical mask, hair covering, gown and shieldPt was cooperative. OHI given Referral: # 18 OS. NV:subha.Briana Cortés RDH by franky (01/11/2020 9:27 AM): Tooth Notes and Watches: Assessment & Plan Medications:HYDROCHLOROTHIAZIDE 25 MG ORAL TABLETLISINOPRIL 20 MG ORAL TABLETAMOXICILLIN 500 MG CAPSAllergies:No Known Allergies (updated 01/11/2020) Orders:Oral Surgery Referral [CPT-94702] Clinical Visit Summary Declined Name Value Range Interpretation Code Description Data Bella rce(s) Supporting Document(s) ID Date Data Source [id number] 12/20/2019 08:51:51 AM EDT [facility] Measurements & CalculationsHeight: 78 inches (6 ft. 6 in.) 198.12 cm Weight: 410 pounds 186.36 kg Body Mass Index (BMI): 47.55BMI Interpretation: Morbidly ObeseBody Surface Area (BSA): 3.07Weight Management Education Done (Nutrition/Physical Activity)Vital SignsTemperature: 97.58FPulse Rate: 101 beats/minuteRespiratory Rate: 14 respirations/minuteBlood Pressure: 169/110 Vital Signs performed by: Yudy Yu, December 20, 2019 8:53 AMVital Signs performed by: Yudy Yu, December 20, 2019 8:53 AMInitial Intake Information From: patientRoom #: 15Infectious Disease / Travel ScreeningRecent travel for you or any close contacts? NoHave you had any close contact with anyone diagnosed with or under investigation for COVID-19 (coronavirus)? NoFever? NoRespiratory symptoms: cough, cold, congestion, shortness of breath, difficulty breathing? NoLoss of smell? NoLoss of taste? NoSmoking, Tobacco, Vaping or Smoke Exposure StatusSmoke Status: current every day smokerTobacco Use: YesAdv to Quit: YesDo you vape? NoPassive Smoke Exposure: YesHealthcare HistorySince your last office visit...Have you been admitted to the hospital? NoHave you been to an emergency room (ER) or urgent care clinic? Yes - med ready, 2 weeks ago, put on BP medsHave you seen another healthcare provider? NoHave you seen a dentist? Yes - ncfhcIntake performed by: Yudy Yu, December 20, 2019 8:55 AMRate Your HealthIn general, would you say your health is? FairPain AssessmentAre you currently having any pain which... You would like your provider to address? No Affects your activity level? NoDepression Screening - PHQ-2Over the last two weeks, have you... Had little interest or pleasure in doing things? Not at all Been feeling down, depressed, or hopeless? Not at all PHQ-2 Score: 0Anxiety Screening - KEREN-2Over the last two weeks, have you been... Feeling nervous, anxious, or on edge? Not at all Unable to stop or control worrying? Not at all KEREN-2 Score: 0Food InsecurityWithin the past year...Did you worry whether your food would run out before you got money to buy more? Never trueWas there a time when the food you bought didn't last and you didn't have money to get more? Never truePRAPARE Sociodemographic Characteristics Race: Black or Ethnicity: Not or Preferred Language: EnglishWithin the past year did you worry whether your food would run out before you got money to buy more? Never trueWithin the past year was there a time when the food you bought didn't last and you didn't have money to get more? Never trueScreening, Brief Intervention, & Referral to Treatment (SBIRT)Pre-Screening Questions How many times have you have 5 or more drinks in a day? 0How many times have you used an illegal drug or used a prescription medication for a non-medical reason? 0Performed by: Yudy Yu, December 20, 2019 8:55 AMPatient History Medical History:High BPpre DMSurgical History:No known surgical historyFamily History:DMHTNheart diseaseSocial/Personal History: Advised to Quit/Tobacco Education: YesChief Complaintnew patientHistory of Present Illness (HPI)patient here today to establish care. moved here from [place] and is entering the [employer] program through [facility]. He was having a BP issue and they told him to go to which he did and was put on BP meds. And now he is establishing primary care.Also on amlodpine. Unsure which dose but we will check with pharmacy. Has missed his last few doses because he was away from home but he will take this again to day.History of sleep apnea. Had a CPAP machine in the past but has not had his machine for a while. Falls asleep easily while reading, watching TV or riding in a car.HPI performed by: Matt Spain MD, December 20, 2019 9:06 AMTransitions of Care InboundProblem ReviewProblem List was reviewed and/or updated during this visit.Medication Reconciliation & ReviewMedication List was reviewed and/or updated during this visit, including review of any [id number] medications, herbal therapies, and/or supplements.Allergy ReviewAllergy List was reviewed and/or updated during this visit.Adult Preventive CareScreening Tobacco Screening: Smoking Status: current every day smoker (12/20/2019) Tobacco Use: Currently (12/20/2019) Advised to Quit: Yes (12/20/2019)Labs/Meds/Other Counseling-Nutrition and Physical Activity:BMI Interpretation: Morbidly Obese (12/20/2019) Counseling: Done (12/20/2019) Physical Activity: Done (12/20/2019)Review of Systems General: Complains of fatigue. Denies dizziness, headache. Cardiovascular: Denies chest pain, palpitations, feeling faint. Respiratory: Denies difficulty breathing, shortness of breath, excessive sputum. Gastrointestinal: Denies diarrhea, constipation. Genitourinary: Denies pain with urination, urinary frequency, urinary urgency. Psychiatric: Denies depression, anxiety. Endocrine: Complains of excessive urination. Denies cold intolerance, heat intolerance, excessive thirst, excessive hunger. Physical ExamGeneral Appearance: well nourished, well hydrated, no acute distressRespiratory, Auscultation: clear to auscultation bilaterally; no rales, rhonchi, or wheezesRespiratory, Effort: no intercostal retractions or use of accessory musclesCardiovascular, Auscultation: S1, S2 audible; no murmur, rub, or gallop; RRRPeripheral Circulation: no clubbing, cyanosis, edema, or varicositiesGait & Station: normalSkin, Inspection: no rashes, lesions, or ulcerationsOrientation: oriented to time, place, and personMood & Affect: no depression, anxiety, or agitationJudgment & Insight: intactCare Management Plan Transitions of CareInboundRate Your HealthIn general, would you say your health is? FairAssessment & Plan Problems:Added: MORBID OBESITY (ICD-278.01) (ICD10- E66.01)BMI 45.0-49.9 (ICD-V85.42) (OPF28-H18.42)Impaired glucose tolerance (ICD- 790.29) (UAP21-J70.02) Assessment: Instructions: Check fasting blood tests before next visit.Obstructive sleep apnea of adult (ICD-327.23) (EUX77-C17.33) Assessment: Instructions: Refer to pulmonology.Recommended weight loss.Benign hypertension (ICD-401.1) (JAY12-U39) Assessment: Instructions: Blood pressure is markedly elevated today but he has not taken his medications for the past 2 days. He will try to take these more consistently and if it it still elevated in one month we will make adjustments.I think that treatment of his sleep apnea will also help his hypertension.Patient Instructions/Care Plan: Impaired glucose tolerance: Check fasting blood tests before next visit .Obstructive sleep apnea of adult: Refer to pulmonology.Recommended weight loss.Benign hypertension: Blood pressure is markedly elevated today but he has not taken his medications for the past 2 days. He will try to take these more consistently and if it it still elevated in one month we will make adjustments.I think that treatment of his sleep apnea will also help his hypertension. Plan developed in collaboration with patient and/or familyMedications:LISINOPRIL 20 MG ORAL TABLETAMOXICILLIN 500 MG CAPSMedication Changes:Added: LISINOPRIL 20 MG ORAL TABLET-take one pill once dailyAllergies:No Known Allergies (updated 11/14/2019) Orders:Adult - Ofc Vst, NEW, Level III [CPT-88153] COMP METABOLIC PANEL [CPT-64106] LIPID PANEL [CPT-18636] TSH [CPT- 64565] HgBA1c [CPT-58496] T-4 free [CPT-06640] Pulmonology Consult [CPT-31876] Name Value Range Interpretation Code Description Data Bella rce(s) Supporting Document(s) ID Date Data Source [id number] 11/14/2019 12:59:44 PM EDT [facility] Current Problems: Dental caries (ICD-521 .00) (GMG57-J75.9)Current Medications: AMOXICILLIN 500 MG CAPS (AMOXICILLIN) 1 tablet by mouth every 8 hours until gone; Route: ORAL Dental Chart: Procedures:Type - CDT Code - Description B - (D0220) Intraoral, periapical, first radiographic image on Tooth # 18 (Performed by Autumn Vivas DMD) B - (D0140) Limited oral evaluation - problem focused on Tooth # 18 (Performed by Autumn Vivas DMD) Treatments:Type - CDT Code - Description T - (D7140) Extraction, erupted tooth or exposed root (elevation and/or forceps removal) on Tooth # 17 (Performed by Autumn Vivas DMD) T - (D7140) Extraction, erupted tooth or exposed root (elevation and/or forceps removal) on Tooth # 18 (Performed by Autumn Vivas DMD) Chart Notes:jeanette (Nov 14 2019 1:26PM): CC: " I have a tooth that is bothering me, I have been in pain for about a week"HPI: tooth pain for about a weekPain Lvl: 7-8RMH (+ high BP)Allergies; NKDABP: 184/136- advised pt to see medical DR. Pt states he takes high BP medication normally but hasnt had any in a while.PA taken-Dexis #18Exam reveals: #18 tender to palpation, tender to percusion pt. was cooperativeDX: symptomatic necrotic pulpPlan: advied tooth #18 needs to be extracted. Advised that he may want tooth #17 and 16 removed at the same time due to eruption.E- scribe Amoxicillin 500mg q8h until gone dispense 21 tabs zero refills ([email or web address])Informed Pt about new pain management policy of the clinic regarding about narcotic,told pt to alternate Ibuprophen 600- 800mg and tylenol 500mg every 4 to 6 hrs for pain when neededAdditional PPE requirements due to COVID-19 in the dental setting, N95, surgical mask, hair covering, gown Pt was cooperative.NV: Autumn Dolan DMD by jeanette (11/14/2019 1:26 PM): Tooth Notes and Watches: Assessment & Plan Problems:Added: Dental caries (ICD-521.00) (ICD10- K02.9)Medication Changes:New Prescription:AMOXICILLIN 500 MG CAPS-1 tablet by mouth every 8 hours until gone Qty: 21[Capsule] Refills: 0 Method: ElectronicAllergies:No Known Allergies (updated 11/14/2019) Orders:Oral Surgery Referral [CPT-85377] Name Value Range Interpretation Code Description Data Bella rce(s) Supporting Document(s) Procedure Vital Signs ID Date Data Source UNK Name Value Range Interpretation Code Description Data Source(s) Body weight 6432 [oz_av] 6432 [oz_av] [facility]) Systolic blood pressure 146 mm[Hg] 146 mm[Hg] [facility] ([facility]) Body mass index (BMI) [Ratio] 46.5 kg/m2 46.5 k g/m2 [facility] ([facility]) Body height 78 [in_i] 78 [in_i] [facility]) Diastolic blood pressure 89 mm[Hg] 89 mm[Hg] [facility] ([facility]) Patient Treatment Plan of Care Planned Activity Planned Date Details Description Data Source (s) Hydrochlorothiazide 25 MG Oral Tablet [facility] ([facility]) Amoxicillin 500 MG Oral Capsule [facility] ([facility])
[2020-04-17] MEDS ORDERED: amLODIPine 5 MG TAB PO ONE (11:45)
[2020-04-17] MEDS ORDERED: KETOROLAC 30 MG/ML 1ML VIAL IM ONE (11:45)
--- OUTSIDE RECORDS SUMMARY | 2020-04-17 12:25 | CCD ---
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 If you continue you may have access to information: Regarding HIV / AIDS; Provided by facilities licensed or operated by the [facility] Office of Mental Health; or Provided by the [facility] Office for People With Developmental Disabilities. If such information is present, then the following [facility] mandated warning applies: This information has been [...] law may result in a fine or mcc sentence or both. A general authorization for the release of medical or other information is NOT sufficient authorization for further disc losure. Encounters Encounter Providers Location Date Indications Data Source(s ) Matt Spain MD: [address] [place] [phone], Ph. Attender: Matt Spain MD [facility] Medical 02/05/2020 12:00:00 AM EST [facility] ([facility]) Matt Spain MD: [address] [place] [phone], Ph. Attender: Matt Spain MD [facility] Medical 01/19/2020 12:00:00 AM EDT [facility] ([facility]) Outpatient Attender: Matt GA 01/18/2020 02:33:00 PM EDT [facility] Outpatient Attender: Matt BROOKS 01/11/2020 09:28:00 AM EDT [facility] Outpatient Attender: Matt BROOKS 01/11/2020 09:06:01 AM EDT [facility] Outpatient Attender: Matt BROOKS 01/11/2020 08:24:00 AM EDT [facility] Outpatient Attender: Matt BROOKS 01/11/2020 08:10:00 AM EDT [facility] Outpatient Attender: JEANETTE NG WATNDC 01/11/2020 08:08:00 AM EDT [facility] Outpatient Attender: JEANETTE NC [facility]NDC 12/21/2019 07:19:00 AM EDT [facility] Outpatient Attender: JEANETTE NG W[facility]NDC 12/20/2019 10:33:00 AM EDT [facility] Outpatient Attender: JEANETTE NC W[facility]NDC 12/20/2019 09:26:02 AM EDT [facility] Outpatient Attender: JEANETTE NG WATNDC 12/20/2019 09:26:01 AM EDT [facility] Outpatient Attender: JEANETTE NC W[facility]NDC 12/06/2019 09:43:02 AM EDT [facility] Outpatient Attender: JEANETTE NG WATNDC 11/30/2019 05:10:01 PM EDT [facility] Outpatient Attender: JEANETTE NG WATNDC 11/16/2019 11:44:01 AM EDT [facility] Outpatient Attender: JEANETTE NG W[facility]NDC 11/16/2019 11:27:01 AM EDT [facility] Outpatient Attender: JEANETTE NG [facility]NDC 11/16/2019 11:26:01 AM EDT [facility] Outpatient Attender: JEANETTE NC W[facility]NDC 11/15/2019 12:02:48 AM EDT [facility] Outpatient Attender: JEANETTE NG WATNDC 11/14/2019 02:20:01 PM EDT [facility] Outpatient Attender: JEANETTE NG WATNDC 11/14/2019 02:18:00 PM EDT [facility] Outpatient Attender: JEANETTE NG WATNDC 11/14/2019 02:01:01 PM EDT [facility] Outpatient Attender: JEANETTE NG WATNDC 11/14/2019 01:57:00 PM EDT [facility] Outpatient Attender: JEANETTE [facility] 11/14/2019 01:28:03 PM EDT [facility] Outpatient Attender: JEANETTE [facility] 11/14/2019 01:28:03 PM EDT [facility] Outpatient Attender: JEANETTE [facility] 11/14/2019 01:22:00 PM EDT [facility] Medications Medication Brand Name Start Date [...] hydroc hlorothiazide 25 MG Oral Tablet [facility] Insurance Providers Payer name Policy type / Coverage type Policy ID Covered constitution party ID Covered constitution party's relationship to coello Policy Coello Plan Information [facility] [id number] SP [id number] O UNAVAILABLE UNAVAILA BLE [facility] [id number] SP [id number] EMEDNY [id number] SP [id number] Medicaid P [id number] S [id number] Managed Care - [facility] Community Plan P UNAVAILABLE S UNAVAILABLE Medicaid S UNAVAILABLE S UNAVAILA BLE Problems, Conditions, and Diagnoses Code Display Name Description Problem Type Effective Dates Data Source(s) 16560215 Hypertensive disorder Hypertensive Disorder Problem 02/05/2020 12:00:00 AM EST [facility]) [id number] Type 2 diabetes mellitus without complic ation Type 2 Diabetes Mellitus without Complication Problem 02/05/2020 12:00:00 AM EST [facility] ([facility]) V85.42 BMI 45.0-49.9 BMI 45.0-49.9 12/20/2019 09:25:04 AM EDT [facility] 278.01 MORBID OBESITY MORBID OBESITY 12/20/2019 09:25: 04 AM EDT [facility] 790.29 Impaired glucose tolerance Impaired glucose tolerance 12/20/2019 09:25:04 AM EDT [facility] 327.23 Obstructive sleep apnea of adult 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 sleep 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 and 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 of 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 12/20/2019 09:25:04 AM EDT [facility] 401.1 Benign hypertension Benign hypertension 020 09:25:04 AM EDT [facility] 521.00 Dental caries Dental caries 11/14/2019 01:27:46 PM EDT [facility] [id number] 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 Dental Arch Length Loss Secondary to Dental Caries Problem 11/14/2019 12:00:00 AM EDT [facility] ([facility]) Results ID Date Data Source [id number] 01/30/2020 03:15:00 PM EST [facility] ([facility]) Name Value Range Interpretation Code Description Data Bella rce(s) Supporting Document(s) ID Date Data Source [id number] 01/19/2020 08:07:00 AM EDT [facility] ([facility]) Name Value Range Interpretation Code Description Data Bella rce(s) Supporting Document(s) estimated average glucose 183 mg/dL 60-110 Above high norm al Estimated Average Glucose [facility] ([facility]) Hemoglobin A1c/Hemoglobin.total in Blood 8.0 % normal Hemoglobin a1C [facility] ([facility]) ID Date Data Source [id number] 01/19/2020 08:07:00 AM EDT [facility] ([facility]) Name Value Range Interpretation Code Description Data Bella rce(s) Supporting Document(s) free T4 1.24 NG/dL 0.76-1.46 normal Free T4 [facility] ([facility]) ID Date Data Source [id number] 01/19/2020 08:07:00 AM EDT [facility] ([facility]) Name Value Range Interpretation Code Description Data Bella rce(s) Supporting Document(s) thyroid stimulating hormone 1.190 uIU/mL 0.358-3.740 normal Thyroid Stimulating Hormone [facility] ([facility]) ID Date Data Source [id number] 01/19/2020 08:07:00 AM EDT [facility] ([facility]) Name Value Range Interpretation Code Description Data Bella rce(s) Supporting Document(s) Cholesterol in LDL [Mass/volume] in Serum or Plasma 131 mg/dL <100 Above high normal LDL Cholesterol [facility]) cholesterol level 208 mg/dL <200 Above high normal Cholesterol Level [facility] ([facility]) triglycerides level 91 mg/dL <150 normal Triglycerides Le leslye [facility] ([facility]) HDL cholesterol 59 mg/dL >40 normal HDL Cholesterol [facility] ([facility]) non-HDL-C 149 mg/dL normal Non-hdl-c [facility] ([facility]) cholesterol risk ratio <5 normal Cholesterol R isk Ratio [facility] ([facility]) ID Date Data Source [id number] 01/19/2020 08:07:00 AM EDT [facility] ([facility]) Name Value Range Interpretation Code Description Data Bella rce(s) Supporting Document(s) glucose, fasting 168 mg/dL 70-100 Above high normal Glucose, Fas ting [facility] ([facility]) creatinine for GFR 1.16 mg/dL 0.70-1.30 normal Creatinine for GF R [facility] ([facility]) blood urea nitrogen 16 mg/dL 7-18 normal Blood Urea Nitro gen [facility] ([facility]) glomerular filtration rate > 60.0 >60 normal Glomerula r Filtration Rate [facility] sodium level 137 mEq/L 136-145 normal Sodium Level [facility] carbon dioxide level 31 mEq/L 21-32 normal Carbon Dioxide Level [facility] ([facility]) anion gap 5 mEq/L 8-16 Below low normal Anion Gap [facility] ( [facility]) potassium serum 4.8 mEq/L 3.5-5.1 normal Potassium Serum [facility] chloride level 101 mEq/L 98-107 normal Chloride Level [facility] ([facility]) calcium level 9.5 mg/dL 8.5-10.1 normal Calcium Level [facility] ( [facility]) alkaline phosphatase 93 U/L 45-117 normal Alkaline Phosph atase [facility] ([facility]) ALT/SGPT 57 U/L 12-78 normal ALT/SGPT [facility] ([facility]) AST/SGOT 31 U/L 7-37 normal AST/SGOT [facility] ([facility]) bilirubin,total 0.3 mg/dL 0.2-1.0 normal Bilirubin,total ATHE [facility]) total protein 8.0 gm/dL 6.4-8.2 normal Total Protein [facility] ( [facility]) albumin/globulin ratio normal Albumin/globu nilda Ratio [facility] ([facility]) albumin 3.8 gm/dL 3.2-5.2 normal Albumin [facility] ([facility]) ID Date Data Source [id number] 01/11/2020 08:08:32 AM EDT [facility] Vital SignsBlood Pressure: 174/104 Patient History Medical History:High BPpre DMSurgical History:No known surgical historyFamily History:DMHTNheart diseaseSocial/Personal History: Smoking Status: current every day smokerDo you vape? NoCurrent Problems: BMI 45.0-49.9 (ICD-V85.42) (ORI90-I26.42)MORBID OBESITY (ICD-278.01) (XZB06-A01.01)Impaired glucose tolerance (ICD-790.29) (IMS46-Y96.02)Obstructive sleep apnea of adult (ICD-327.23) (DNZ74-Y45.33)Benign hypertension (ICD-401.1) (JWP00-J42)Dental caries (ICD-521.00) (ICD10- K02.9)Problem list reviewed during [...] Description[E] Decay On #15 Surface OD[E] Am[employer]am Baptism On #32 Surface O[E] Missing - [place] and Root On #1 Surface O Region XR, #2 Surface O Region XR, #31 Surface O Region XR Chart Notes:edilma (Jan 11 2020 9:03AM): Pt states he was seen about a year ago at another dental site in [place] and had several teeth extracted. Pt was seen here in Oct for an emergency appointment and was suppose to be seen for extraction of #17 and 18. Pt c/o discomfort when he is eating (teeth were not removed.)OH-[facility] to [facility] exam, FMXPt states he brushes usually [...] AM): ; franky (Jan 11 2020 9:27AM): [facility]). CC: none. Reviewed Xrays. Exam: caries detected. [...] Known Allergies (updated 01/11/2020) Orders:Oral Surgery Referral [CPT-84759] Clinical Visit Summary Declined Name Value Range Interpretation Code Description Data Bella rce(s) Supporting Document(s) ID Date Data Source [id number] 12/20/2019 08:51:51 AM EDT [facility] Measurements & CalculationsHeight: 78 inches (6 [...] today to establish care. moved here from [place] and is entering the [employer] program through [facility]. He was having a BP issue and [...] during this visit, including review of any hmrj-jnz-fdpbcal medications, herbal therapies, and/or supplements.Allergy ReviewAllergy List [...] MORBID OBESITY (ICD-278.01) (ICD10- E66.01)BMI 45.0-49.9 (ICD-V85.42) (WNB91-U50.42)Impaired glucose tolerance (ICD- 790.29) (CIK70-F04.02) Assessment: Instructions: Check fasting blood tests before next visit.Obstructive sleep apnea of adult (ICD-327.23) (EOE28-F58.33) Assessment: Instructions: Refer to pulmonology.Recommended weight loss.Benign hypertension (ICD-401.1) (BOH09-T83) Assessment: Instructions: Blood pressure is markedly elevated [...] Orders:Adult - Ofc Vst, NEW, Level III [CPT-37053] COMP METABOLIC PANEL [CPT-83317] LIPID PANEL [CPT-18824] TSH [CPT- 36933] HgBA1c [CPT-61938] T-4 free [CPT-31624] Pulmonology Consult [CPT-56029] Name Value Range Interpretation Code Description Data Bella rce(s) Supporting Document(s) ID Date Data Source [id number] 11/14/2019 12:59:44 PM EDT [facility] Current Problems: Dental caries (ICD-521 .00) (GUJ86-F51.9)Current Medications: AMOXICILLIN 500 MG CAPS (AMOXICILLIN) 1 [...] until gone dispense 21 tabs zero [facility]Informed Pt about new pain management policy [...] Known Allergies (updated 11/14/2019) Orders:Oral Surgery Referral [CPT-71174] Name Value Range Interpretation Code Description Data Bella rce(s) Supporting Document(s) Procedure Vital Signs ID Date Data Source [id number] Name Value Range Interpretation Code Description Data Source(s) Body weight 6432 [oz_av] 6432 [oz_av] [facility]) Systolic blood pressure 146 mm[Hg] 146 mm[Hg] [facility] Body mass index (BMI) [Ratio] 46.5 kg/m2 46.5 k g/m2 [facility]) Body height 78 [in_i] 78 [in_i] [facility]) Diastolic blood pressure 89 mm[Hg] 89 mm[Hg] [facility]) Patient Treatment Plan of Care Planned Activity Planned Date Details Description Data Source (s) Hydrochlorothiazide 25 MG Oral Tablet [facility] ([facility]) Amoxicillin 500 MG Oral Capsule [facility] ([facility])
--- NOTE | 2020-04-17 12:44 | REP ---
INDICATION: left foot pain, no known injury. COMPARISON: None. TECHNIQUE: Four views. FINDINGS: Four views of the left foot demonstrate overall normal mineralization. There is a small accessory ossicle adjacent to the distal 1st metatarsal at the MTP joint. Plantar and Achilles calcaneal spurring is noted. No acute bony abnormality is seen. Soft tissues are unremarkable.. No fracture or subluxation is seen. No opaque foreign body noted. IMPRESSION: Heel spurs and mild bunion change adjacent to the medial aspect of the distal end of the 1st metatarsal. No acute bony abnormality.. <Electronically signed by Baldev Escobar > 04/17/20 [id number]
--- NOTE | 2020-04-17 13:16 | REP ---
INDICATION: left foot pain, no injury, r/o DVT in left lg. COMPARISON: None. TECHNIQUE: Left lower extremity duplex venous ultrasound. FINDINGS: The deep veins are anechoic and fully compressible from the groin to the popliteal fossa in the left lower extremity. Color flow imaging is homogeneous. Spectral Doppler interrogation demonstrates intact respiratory variation in flow and normal manual augmentation of flow. There is no evidence of deep vein thrombosis. IMPRESSION: Negative left lower extremity duplex venous ultrasound. No evidence of deep vein thrombosis. <Electronically signed by Baldev Escobar > 04/17/20 [id number]
[2020-04-17 13:24] VITALS: BP 130/90
[2020-04-17] MEDS ORDERED: KETO10TAB PO (13:40)
== END 2020-04-17 14:09 | disposition home or self-care (01) ==
LOC: M ED 11:03
DX: M79.672 Pain in left foot (principal); M77.32 Calcaneal spur, left foot; M21.612 Bunion of left foot; E11.9 Type 2 diabetes mellitus without complications; I10 Essential (primary) hypertension; F17.200 Nicotine dependence, unspecified, uncomplicated; Z79.84 Long term (current) use of oral hypoglycemic drugs; Z79.899 Other long term (current) drug therapy
CPT/HCPCS: 73630; 93971; 96372; 99283; J1885

== ENCOUNTER 2020-08-07 17:47 | Emergency (ER) | payer OTHER ==
[~2020-08-07] VITALS: Ht 198.1 cm; Wt 165.9 kg
[~2020-08-07 17:47] MED LIST changes: +KETO10TAB PO
--- NOTE | 2020-08-07 18:37 | REP ---
INDICATION: pain COMPARISON: None. TECHNIQUE: Four views right foot. FINDINGS: There is no evidence of acute fracture, dislocation, or intrinsic bone disease.There is a tiny posterior calcaneal spur. There is a small dorsal navicular spur. IMPRESSION: No fracture or dislocation. Mild calcaneal and navicular spurring. <Electronically signed by Chun Nguyen > 08/07/20 [id number]
[2020-08-07] MEDS ORDERED: INDO50CA91 PO (19:58)
[2020-08-07] MEDS ORDERED: INDOMETHACIN 25 MG CAP PO ONE (20:05)
[2020-08-07 20:25] VITALS: BP 160/88
== END 2020-08-07 20:27 | disposition home or self-care (01) ==
LOC: M ED 17:47
DX: M10.071 Idiopathic gout, right ankle and foot (principal); M77.31 Calcaneal spur, right foot; E11.9 Type 2 diabetes mellitus without complications; I10 Essential (primary) hypertension; F17.200 Nicotine dependence, unspecified, uncomplicated; Z79.899 Other long term (current) drug therapy

== ENCOUNTER 2021-09-04 02:32 | Observation (INO) | payer BC, MEDICAID, OTHER ==
[~2021-09-04] VITALS: Ht 198.1 cm; Wt 167.6 kg
[~2021-09-04 02:32] MED LIST changes: +INDO50CA91 PO
[2021-09-04 03:41] LABS: HEMATOCRIT 47.1 % (42.0-52.0); HEMOGLOBIN 15.1 g/dl (13.5-17.5); MEAN CORPUSCULAR HEMOGLOBIN 26.2 pg (27.0-33.0); MEAN CORPUSCULAR HGB CONC 32.1 g/dl (32.0-36.5); MEAN CORPUSCULAR VOLUME 81.8 fl (80.0-96.0); PLATELET COUNT, AUTOMATED 352 10^3/uL (150-450); RED BLOOD COUNT 5.76 10^6/uL (4.30-6.10); WHITE BLOOD COUNT 11.1 10^3/uL (4.0-10.0)
[2021-09-04] MEDS ORDERED: FUROSEMIDE 40MG/4ML VIAL (J1940) IV ONE (04:05)
[2021-09-04 04:06] LABS: CK-MB VALUE MASS 3.5 NG/ML (<3.6); MB/CK RELATIVE INDEX 1.06 (< OR =4)
[2021-09-04] MEDS: niCARdipine IV 40 MG in IV 1 EA IV SCH (04:15)
[2021-09-04 04:19] LABS: ALBUMIN 3.1 GM/DL (3.2-5.2); ALT/SGPT 35 U/L (12-78); BILIRUBIN,TOTAL 0.4 MG/DL (0.2-1.0); BLOOD UREA NITROGEN 14 MG/DL (7-18); CALCIUM LEVEL 8.5 MG/DL (8.5-10.1); CARBON DIOXIDE LEVEL 28 MEQ/L (21-32); CHLORIDE LEVEL 107 MEQ/L (98-107); GLOMERULAR FILTRATION RATE > 60.0 (>60); GLUCOSE, FASTING 255 MG/DL (70-100); LIPASE 156 U/L (73-393); NT-PRO BNP 228 PG/ML (<125); POTASSIUM SERUM 4.2 MEQ/L (3.5-5.1); SODIUM LEVEL 139 MEQ/L (136-145); TOTAL PROTEIN 6.7 GM/DL (6.4-8.2)
[2021-09-04] MEDS ORDERED: NITROGLYCERIN 2% OINT 1 GM *U/D* PKT TOP ONE (05:35)
[2021-09-04] MEDS ORDERED: ISOVUE-370 76% 100ML VIAL As Ordered ONE (05:48)
[2021-09-04 06:40] LABS: BASO # 0.1 10^3/uL (0.0-0.2); BASO % 0.7 % (0.0-1.0); EOS # 0.3 10^3/uL (0.0-0.5); EOS % 2.6 % (0.0-3.0); LYMPH # 3.7 10^3/uL (1.5-5.0); LYMPH % 33.4 % (24.0-44.0); MONO # 0.8 10^3/uL (0.0-0.8); MONO % 7.3 % (2.0-8.0); NEUTROPHILS # 6.1 10^3/uL (1.5-8.5); NEUTROPHILS % 55.6 % (36.0-66.0)
[2021-09-04] MEDS ORDERED: IPRATROPIUM 0.5MG/ALBUTEROL 2.5MG INH SOL UD 3ML (DUONEB) INH PRN (08:20)
[2021-09-04] MEDS ORDERED: ACETAMINOPHEN TAB 650MG DOSE (2X325MG) PO PRN (08:20)
[2021-09-04] MEDS ORDERED: GLUCOSE 4GM CHEW TABLET PO PRN (08:20)
[2021-09-04] MEDS ORDERED: DEXTROSE 50% 50 ML SYRINGE IV PRN (08:20)
[2021-09-04] MEDS ORDERED: GLUCAGON INJ 1MG VIAL SC PRN (08:20)
[2021-09-04] MEDS ORDERED: MOM 30ML SUSPENSION UDC PO PRN (08:20)
[2021-09-04 08:27] LABS: ABG BASE EXCESS 0.1 (-2.0-2.0); ABG HCO3 25.2 MEQ/L (22.0-26.0); ABG O2 SATURATION 96.1 % (95.0-99.0); ABG PARTIAL PRESSURE CO2 42.3 mmHg (35.0-45.0); ABG PARTIAL PRESSURE O2 79.3 mmHg (75.0-100.0); ABG STANDARD HCO3 24.6 MEQ/L (22.0-26.0); ABG TOTAL CO2 26.5 MEQ/L (22.0-29.0); ABG pH (ARTERIAL) 7.393 UNITS (7.350-7.450)
[2021-09-04] MEDS: amLODIPine 5 MG TAB PO SCH (08:31)
[2021-09-04] MEDS: INSULIN LISPRO (NovoLOG) PER UNIT SC SCH ×3 (08:31→17:40)
[2021-09-04] MEDS ORDERED: AMLO1TAB25 PO (09:41)
[2021-09-04] MEDS ORDERED: PATIENT COMMENT (09:41)
[2021-09-04] MEDS ORDERED: HOME MED LIST COMPLETE! XX SCH (09:45)
[2021-09-04] MEDS: cefTRIAXone SOD 1 GM in D5W MINI-BAG PLUS 50 ML IV SCH (09:54)
[2021-09-04] MEDS ORDERED: AZITHROMYCIN INJ 500 MG, VIAL MATE ADAPTER 1 EACH in NS 250 ML IV SCH (10:00)
[2021-09-04 12:45] VITALS: BP 158/80
[2021-09-04] MEDS: ENOXAPARIN 40MG/0.4ML SYRINGE (J1650 PER 10MG) SC SCH ×2 (12:53→20:26)
[2021-09-04 14:00] VITALS: BP 152/88
[2021-09-04 21:00] VITALS: BP 152/100
[2021-09-04] MEDS ORDERED: NICOTINE 21MG/24HR 1 EA TRANSDERMAL TD PRN (21:00)
[2021-09-04] MEDS ORDERED: amLODIPine 5 MG TAB PO ONE (21:00)
[2021-09-04] MEDS ORDERED: INSULIN LISPRO (NovoLOG) PER UNIT SC SCH (21:00)
[2021-09-04 22:00] VITALS: BP 142/82
[2021-09-05 04:00] VITALS: BP 145/75
[2021-09-05 06:00] VITALS: BP 150/71
[2021-09-05 06:27] LABS: HEMATOCRIT 50.3 % (42.0-52.0); HEMOGLOBIN 16.4 g/dl (13.5-17.5); MEAN CORPUSCULAR HEMOGLOBIN 26.3 pg (27.0-33.0); MEAN CORPUSCULAR HGB CONC 32.6 g/dl (32.0-36.5); MEAN CORPUSCULAR VOLUME 80.7 fl (80.0-96.0); PLATELET COUNT, AUTOMATED 341 10^3/uL (150-450); RED BLOOD COUNT 6.23 10^6/uL (4.30-6.10); WHITE BLOOD COUNT 9.8 10^3/uL (4.0-10.0)
[2021-09-05 07:03] LABS: BLOOD UREA NITROGEN 11 MG/DL (7-18); CALCIUM LEVEL 9.5 MG/DL (8.5-10.1); CARBON DIOXIDE LEVEL 29 MEQ/L (21-32); CHLORIDE LEVEL 101 MEQ/L (98-107); CREATININE FOR GFR 0.94 MG/DL (0.70-1.30); GLOMERULAR FILTRATION RATE > 60.0 (>60); GLUCOSE, FASTING 191 MG/DL (70-100); MAGNESIUM LEVEL 1.9 MG/DL (1.8-2.4); POTASSIUM SERUM 3.7 MEQ/L (3.5-5.1); SODIUM LEVEL 135 MEQ/L (136-145)
[2021-09-05 08:38] VITALS: BP 150/71
[2021-09-05] MEDS: amLODIPine 5 MG TAB PO SCH (08:38)
[2021-09-05] MEDS: INSULIN LISPRO (NovoLOG) PER UNIT SC SCH (08:39)
[2021-09-05] MEDS: ENOXAPARIN 40MG/0.4ML SYRINGE (J1650 PER 10MG) SC SCH (09:00)
[2021-09-05] MEDS: cefTRIAXone SOD 1 GM in D5W MINI-BAG PLUS 50 ML IV SCH (09:00)
[2021-09-05] MEDS ORDERED: NICO21PAT TD (09:46)
[2021-09-05] MEDS ORDERED: AMLO1TAB25 PO (11:17)
[2021-09-05] MEDS ORDERED: METF500T13 PO (11:17)
[2021-09-05] MEDS ORDERED: HYDR-3490 PO (11:17)
[2021-09-08 18:07] LABS: BODY FLUID CULTURE Not indicated. (.); LEGIONELLA ANTIGEN URINE Negative (Negative); ORGANISM ID Not indicated. (.); SPECIMEN SOURCE Urine (.); URINE STREP PNEUMONIAE ANTIGEN Negative (Negative)
== END 2021-09-05 11:31 | disposition home or self-care (01) ==
LOC: M ED 02:32 → M ED INP 02:33 → ENRESERV 11:02 → M MSPAV 12:32
PROVIDERS: ADMIT Internal Medicine; ATTEND Internal Medicine
DX: I16.0 Hypertensive urgency (principal); E11.65 Type 2 diabetes mellitus with hyperglycemia; Z91.14 Patient's other noncompliance with medication regimen; J20.4 Acute bronchitis due to parainfluenza virus; E66.9 Obesity, unspecified; F17.210 Nicotine dependence, cigarettes, uncomplicated; I10 Essential (primary) hypertension; M10.9 Gout, unspecified; Z79.84 Long term (current) use of oral hypoglycemic drugs; Z79.899 Other long term (current) drug therapy
CPT/HCPCS: 36415; 36600; 71045; 71275; 80048; 80053; 82550; 82553; 82803; 83690; 83735; 83880; 84145; 85027; 87070; 87077; 87186; 87205; 87449; 87486; 87581; 87633; 87798; 87899; 93005; 93041; 94760; 96365; 96375; 96376; 99285; J0456; J0696; J1650; J1815; J1940; Q9967

== ENCOUNTER → 2022-02-16 | Outpatient (REF) | payer OTHER ==
[~2022-02-16] MED LIST changes: +AMLO1TAB25 PO; +NICO21PAT TD; +PATIENT COMMENT
[2022-02-16 13:33] LABS: HEMOGLOBIN A1c 11.1 % (4.0-6.0)
[2022-02-16 13:37] LABS: ALBUMIN 3.8 G/DL (3.2-5.2); ALT/SGPT 33 U/L (7.0-40); BILIRUBIN,TOTAL 0.2 MG/DL (0.3-1.2); BLOOD UREA NITROGEN 14 MG/DL (9-23); CARBON DIOXIDE LEVEL 25 MMOL/L (20-31); CHLORIDE LEVEL 99 MMOL/L (98-107); CHOLESTEROL LEVEL 223 MG/DL (<200); CHOLESTEROL RISK RATIO 3.34 (<5); CREATININE FOR GFR 0.79 MG/DL (0.70-1.30); GLOMERULAR FILTRATION RATE > 60.0 (>60); GLUCOSE, FASTING 279 MG/DL (60-100); HDL CHOLESTEROL 66.6 MG/DL (>40); LDL CHOLESTEROL 134.6 MG/DL (<100); NON-HDL-C 156 MG/DL; POTASSIUM SERUM 4.5 MMOL/L (3.5-5.1); SODIUM LEVEL 135 MMOL/L (136-145); THYROID STIMULATING HORMONE 1.005 uIU/ML (0.55-4.78); TOTAL PROTEIN 7.3 G/DL (5.7-8.2); TRIGLYCERIDES LEVEL 109 MG/DL (<150)
== END ==
LOC: M LAB REF 12:31
PROVIDERS: ATTEND Family Medicine Addiction Medicine
DX: E11.9 Type 2 diabetes mellitus without complications (principal)

== ENCOUNTER → 2022-02-27 | Outpatient (REF) | payer OTHER ==
[2022-02-27 17:29] LABS: CREATININE, URINE 111.8 MG/DL
[2022-02-27 17:56] LABS: MAU/CREAT RATIO 371.1 MCG/MG (0.0-30.0)
== END ==
LOC: M LAB REF 14:38
PROVIDERS: ATTEND Family Medicine Addiction Medicine
DX: E11.9 Type 2 diabetes mellitus without complications (principal)

== ENCOUNTER 2022-06-15 06:57 | Emergency (ER) | payer OTHER ==
[~2022-06-15] VITALS: Ht 198.1 cm; Wt 166.1 kg
[2022-06-15] MEDS ORDERED: LISI20TA37 (07:33)
[2022-06-15] MEDS ORDERED: ATOR40TA75 (07:33)
[2022-06-15] MEDS ORDERED: TRUL0.5I (07:33)
[2022-06-15] MEDS ORDERED: METF10004 (07:33)
[2022-06-15] MEDS ORDERED: NS 1,000 ML IV ONE (10:05)
[2022-06-15] MEDS ORDERED: ISOVUE-370 76% 100ML VIAL As Ordered ONE (11:21)
[2022-06-15 11:23] LABS: BASO % 0.4 % (0.0-1.0); EOS # 0.3 10^3/uL (0.0-0.5); EOS % 2.6 % (0.0-3.0); HEMATOCRIT 49.5 % (42.0-52.0); HEMOGLOBIN 15.8 g/dl (13.5-17.5); LYMPH % 30.5 % (24.0-44.0); MEAN CORPUSCULAR HEMOGLOBIN 25.6 pg (27.0-33.0); MEAN CORPUSCULAR HGB CONC 31.9 g/dl (32.0-36.5); MEAN CORPUSCULAR VOLUME 80.2 fl (80.0-96.0); MONO % 10.1 % (2.0-8.0); NEUTROPHILS # 5.5 10^3/uL (1.5-8.5); PLATELET COUNT, AUTOMATED 399 10^3/uL (150-450); RED BLOOD COUNT 6.17 10^6/uL (4.30-6.10); WHITE BLOOD COUNT 9.8 10^3/uL (4.0-10.0)
[2022-06-15 11:46] LABS: ALBUMIN 3.5 G/DL (3.2-5.2); BILIRUBIN,DIRECT 0.1 MG/DL (<0.4); BILIRUBIN,TOTAL 0.3 MG/DL (0.3-1.2); TOTAL PROTEIN 7.3 G/DL (5.7-8.2)
[2022-06-15 13:55] VITALS: BP 156/84
== END 2022-06-15 14:07 | disposition home or self-care (01) ==
LOC: M ED 06:57
DX: A08.4 Viral intestinal infection, unspecified (principal); E11.65 Type 2 diabetes mellitus with hyperglycemia; I88.0 Nonspecific mesenteric lymphadenitis; K76.0 Fatty (change of) liver, not elsewhere classified; R16.0 Hepatomegaly, not elsewhere classified; E78.5 Hyperlipidemia, unspecified; I10 Essential (primary) hypertension; F12.10 Cannabis abuse, uncomplicated; F17.200 Nicotine dependence, unspecified, uncomplicated; Z79.02 Long term (current) use of antithrombotics/antiplatelets; Z79.811 Long term (current) use of aromatase inhibitors; Z79.4 Long term (current) use of insulin; Z79.899 Other long term (current) drug therapy
CPT/HCPCS: 74177; 80047; 80076; 83690; 85025; 87507; 96360; 96361; 99284; Q9967

== ENCOUNTER → 2022-09-04 | Outpatient (REF) | payer OTHER ==
[~2022-09-04] MED LIST changes: +ATOR40TA75; +LISI20TA37; +METF10004; +TRUL0.5I
[2022-09-04 15:50] LABS: ALBUMIN 3.8 G/DL (3.2-5.2); ALKALINE PHOSPHATASE 95 U/L (46-116); ALT/SGPT 29 U/L (7.0-40); AST/SGOT 24 U/L (<34); BILIRUBIN,TOTAL 0.4 MG/DL (0.3-1.2); BLOOD UREA NITROGEN 15 MG/DL (9-23); CALCIUM LEVEL 8.9 MG/DL (8.5-10.1); CARBON DIOXIDE LEVEL 28 MMOL/L (20-31); CHLORIDE LEVEL 99 MMOL/L (98-107); CHOLESTEROL LEVEL 221 MG/DL (<200); CHOLESTEROL RISK RATIO 2.97 (<5); CREATININE FOR GFR 0.79 MG/DL (0.70-1.30); GLOMERULAR FILTRATION RATE > 60.0 (>60); GLUCOSE, FASTING 234 MG/DL (60-100); HDL CHOLESTEROL 74.2 MG/DL (>40); LDL CHOLESTEROL 132.8 MG/DL (<100); NON-HDL-C 146.8 MG/DL; SODIUM LEVEL 135 MMOL/L (136-145); TOTAL PROTEIN 7.3 G/DL (5.7-8.2); TRIGLYCERIDES LEVEL 70 MG/DL (<150)
[2022-09-04 15:52] LABS: THYROID STIMULATING HORMONE 1.323 uIU/ML (0.55-4.78)
[2022-09-04 15:58] LABS: HEMOGLOBIN A1c 11.5 % (4.0-6.0)
== END ==
LOC: M LAB REF 12:29
PROVIDERS: ATTEND Family Medicine Addiction Medicine
DX: E11.9 Type 2 diabetes mellitus without complications (principal)

== ENCOUNTER 2023-01-07 11:29 | Emergency (ER) | payer OTHER ==
[~2023-01-07] VITALS: Ht 198.1 cm; Wt 152.3 kg
[2023-01-07 11:30] VITALS: TEMP 97.9
[2023-01-07 12:31] LABS: VENOUS BASE EXCESS -3.2 (-2.0-2.0); VENOUS HCO3 23.2 MMOL/L (23.0-27.0); VENOUS O2 SATURATION 73.4 % (60.0-80.0); VENOUS PARTIAL PRESSURE CO2 46.1 mmHg (38.0-50.0); VENOUS PARTIAL PRESSURE O2 38.8 mmHg (30.0-50.0); VENOUS PH 7.319 UNITS (7.330-7.430); VENOUS STANDARD HCO3 21.1 MMOL/L; VENOUS TOTAL CO2 24.6 MMOL/L (24.0-28.0)
[2023-01-07 12:44] LABS: BASO # 0.1 10^3/uL (0.0-0.2); BASO % 0.6 % (0.0-1.0); EOS # 0.2 10^3/uL (0.0-0.5); EOS % 1.7 % (0.0-3.0); HEMATOCRIT 51.3 % (42.0-52.0); HEMOGLOBIN 16.6 g/dl (13.5-17.5); LYMPH # 3.1 10^3/uL (1.5-5.0); LYMPH % 28.7 % (24.0-44.0); MEAN CORPUSCULAR HEMOGLOBIN 25.3 pg (27.0-33.0); MEAN CORPUSCULAR HGB CONC 32.4 g/dl (32.0-36.5); MEAN CORPUSCULAR VOLUME 78.3 fl (80.0-96.0); MONO % 9.5 % (2.0-8.0); NEUTROPHILS # 6.4 10^3/uL (1.5-8.5); NEUTROPHILS % 59.2 % (36.0-66.0); PLATELET COUNT, AUTOMATED 400 10^3/uL (150-450); RED BLOOD COUNT 6.55 10^6/uL (4.30-6.10); WHITE BLOOD COUNT 10.8 10^3/uL (4.0-10.0)
[2023-01-07 12:51] LABS: HEMOGLOBIN A1c 13.4 % (4.0-6.0)
[2023-01-07 13:06] LABS: LIPASE 67 U/L (12-53)
[2023-01-07 13:08] LABS: ALKALINE PHOSPHATASE 108 U/L (46-116); ALT/SGPT 28 U/L (7.0-40); AST/SGOT 20 U/L (<34); BILIRUBIN,DIRECT 0.2 MG/DL (<0.4); BILIRUBIN,TOTAL 0.6 MG/DL (0.3-1.2); BLOOD UREA NITROGEN 31 MG/DL (9-23); CALCIUM LEVEL 11.8 MG/DL (8.5-10.1); CARBON DIOXIDE LEVEL 26 MMOL/L (20-31); CHLORIDE LEVEL 95 MMOL/L (98-107); CREATININE FOR GFR 1.32 MG/DL (0.70-1.30); GLOMERULAR FILTRATION RATE > 60.0 (>60); GLUCOSE, FASTING 381 MG/DL (60-100); POTASSIUM SERUM 4.9 MMOL/L (3.5-5.1); SODIUM LEVEL 128 MMOL/L (136-145)
[2023-01-07 13:10] LABS: ACETONE/KETONE 0.22 MMOL/L (0.02-0.27); OSMOLALITY SERUM 297 MOSM/KG (275-295)
[2023-01-07] MEDS ORDERED: NS 1,000 ML IV ONE ×2 (14:45→16:35)
[2023-01-07] MEDS ORDERED: INSULIN LISPRO (NovoLOG) PER UNIT SC STA (16:34)
[2023-01-07 16:45] LABS: PTH INTACT 11.4 PG/ML (18.5-88.0)
[2023-01-07 18:10] VITALS: BP 158/87; O2SAT 95
== END 2023-01-07 18:18 | disposition home or self-care (01) ==
LOC: M ED 11:29
DX: E11.65 Type 2 diabetes mellitus with hyperglycemia (principal); E83.52 Hypercalcemia; I44.4 Left anterior fascicular block; I25.2 Old myocardial infarction; F17.200 Nicotine dependence, unspecified, uncomplicated; F12.10 Cannabis abuse, uncomplicated; Z79.811 Long term (current) use of aromatase inhibitors; Z79.899 Other long term (current) drug therapy
CPT/HCPCS: 80048; 80076; 81001; 82010; 82803; 83036; 83690; 83930; 83970; 84443; 85025; 93005; 96372; 99284; J1815

== ENCOUNTER 2024-02-16 17:54 | Emergency (ER) | payer OTHER ==
[~2024-02-16] VITALS: Ht 198.1 cm; Wt 144.8 kg
[2024-02-16 18:01] VITALS: TEMP 97
[2024-02-16 19:09] LABS: BASO % 0.3 % (0.0-1.0); EOS # 0.2 10^3/uL (0.0-0.5); EOS % 1.4 % (0.0-3.0); HEMATOCRIT 51.6 % (42.0-52.0); LYMPH # 3.5 10^3/uL (1.5-5.0); LYMPH % 29.7 % (24.0-44.0); MEAN CORPUSCULAR HGB CONC 32.9 g/dl (32.0-36.5); MONO # 0.9 10^3/uL (0.0-0.8); MONO % 7.8 % (2.0-8.0); NEUTROPHILS # 7.1 10^3/uL (1.5-8.5); NEUTROPHILS % 60.5 % (36.0-66.0); PLATELET COUNT, AUTOMATED 428 10^3/uL (150-450); RED BLOOD COUNT 6.53 10^6/uL (4.30-6.10); WHITE BLOOD COUNT 11.7 10^3/uL (4.0-10.0)
[2024-02-16 19:25] LABS: ALKALINE PHOSPHATASE 111 U/L (40-129); ALT/SGPT 34 U/L (7.0-40); AST/SGOT 25 U/L (<34); BILIRUBIN,TOTAL 0.7 MG/DL (0.3-1.2); BLOOD UREA NITROGEN 17 MG/DL (9-23); CALCIUM LEVEL 10.6 MG/DL (8.5-10.1); CARBON DIOXIDE LEVEL 25 MMOL/L (20-31); CHLORIDE LEVEL 101 MMOL/L (98-107); GLOMERULAR FILTRATION RATE > 60.0 (>60); GLUCOSE, FASTING 273 MG/DL (60-100); POTASSIUM SERUM 4.4 MMOL/L (3.5-5.1); SODIUM LEVEL 137 MMOL/L (136-145); TOTAL PROTEIN 8.6 G/DL (5.7-8.2)
[2024-02-16 20:59] LABS: LIPASE 43 U/L (12-53)
[2024-02-16 21:49] LABS: THYROID STIMULATING HORMONE 0.847 uIU/ML (0.55-4.78)
[2024-02-16 22:05] LABS: ACETONE/KETONE 0.12 MMOL/L (0.02-0.27)
[2024-02-16] MEDS: NS 1,000 ML IV ONE (22:35)
[2024-02-17 00:05] LABS: CK-MB VALUE MASS < 1.0 NG/ML (<3.6)
[2024-02-17 00:09] LABS: CPK CREATINE PHOSPHOKINASE 120 U/L (46-171); MB/CK RELATIVE INDEX 0.83 (< OR =4)
[2024-02-17 02:16] VITALS: BP 172/97
[2024-02-17 02:19] VITALS: O2SAT 99
== END 2024-02-17 02:31 | disposition home or self-care (01) ==
LOC: M ED 17:54
DX: E86.0 Dehydration (principal); R00.0 Tachycardia, unspecified; I44.4 Left anterior fascicular block; I51.7 Cardiomegaly; E78.5 Hyperlipidemia, unspecified; I10 Essential (primary) hypertension; E11.9 Type 2 diabetes mellitus without complications; Z79.84 Long term (current) use of oral hypoglycemic drugs; Z79.899 Other long term (current) drug therapy

== ENCOUNTER → 2024-07-07 | Outpatient (CLI) | payer OTHER | LOC: M SLEEP HO 10:52 | PROVIDERS: ATTEND Nurse Practitioner Family | DX: G47.33 Obstructive sleep apnea (adult) (pediatric) (principal) ==

== ENCOUNTER → 2024-07-24 | Outpatient (REF) | payer OTHER ==
[2024-07-24 13:48] LABS: ALBUMIN 3.9 G/DL (3.2-5.2); ALKALINE PHOSPHATASE 104 U/L (40-129); ALT/SGPT 55 U/L (7.0-40); AST/SGOT 25 U/L (<34); BILIRUBIN,TOTAL 0.6 MG/DL (0.3-1.2); BLOOD UREA NITROGEN 12 MG/DL (9-23); CALCIUM LEVEL 10.1 MG/DL (8.5-10.1); CARBON DIOXIDE LEVEL 29 MMOL/L (20-31); CHLORIDE LEVEL 98 MMOL/L (98-107); CHOLESTEROL LEVEL 170 MG/DL (<200); CHOLESTEROL RISK RATIO 2.84 (<5); CREATININE FOR GFR 0.73 MG/DL (0.70-1.30); GLOMERULAR FILTRATION RATE > 90.0 (>60); GLUCOSE, FASTING 276 MG/DL (60-100); HDL CHOLESTEROL 59.8 MG/DL (>40); LDL CHOLESTEROL 100.4 MG/DL (<100); NON-HDL-C 110.2 MG/DL; POTASSIUM SERUM 4.8 MMOL/L (3.5-5.1); SODIUM LEVEL 135 MMOL/L (136-145); TOTAL PROTEIN 7.6 G/DL (5.7-8.2); TRIGLYCERIDES LEVEL 49 MG/DL (<150)
== END ==
LOC: M LAB REF 12:28
PROVIDERS: ATTEND Family Medicine Addiction Medicine
DX: E11.9 Type 2 diabetes mellitus without complications (principal)

== ENCOUNTER → 2024-12-29 | Outpatient (REF) | payer OTHER ==
[2024-12-29 15:24] LABS: CREATININE, URINE 173.2 MG/DL; MALB URINE SIEMENS 206.0 MG/L; MAU/CREAT RATIO 118.9 MCG/MG (0.0-30.0)
[2024-12-29 16:39] LABS: ALT/SGPT 39 U/L (7.0-40); AST/SGOT 25 U/L (<34); CALCIUM LEVEL 9.5 MG/DL (8.5-10.1); CARBON DIOXIDE LEVEL 30 MMOL/L (20-31); CHLORIDE LEVEL 102 MMOL/L (98-107); CHOLESTEROL LEVEL 223 MG/DL (<200); CHOLESTEROL RISK RATIO 3.79 (<5); CREATININE FOR GFR 0.87 MG/DL (0.70-1.30); GLOMERULAR FILTRATION RATE > 90.0 (>60); LDL CHOLESTEROL 153.0 MG/DL (<100); NON-HDL-C 164.2 MG/DL; POTASSIUM SERUM 4.7 MMOL/L (3.5-5.1); SODIUM LEVEL 140 MMOL/L (136-145); TRIGLYCERIDES LEVEL 56 MG/DL (<150)
[2024-12-29 17:42] LABS: ESTIMATED AVERAGE GLUCOSE 292.0 MG/DL (60-110)
== END ==
LOC: M LAB REF 14:18
PROVIDERS: ATTEND Family Medicine Addiction Medicine
DX: E11.9 Type 2 diabetes mellitus without complications (principal); Z79.4 Long term (current) use of insulin

== ENCOUNTER → 2024-12-30 | Outpatient (RCR) | LOC: M EMPSKH 12-25 09:34 → EDUNIT# 12-25 09:34 | PROVIDERS: ATTEND Family Medicine | DX: Z20.828 Contact with and (suspected) exposure to other viral communicable diseases (principal) ==

== ENCOUNTER → 2025-03-01 | Outpatient (REF) | payer OTHER ==
[2025-03-01 14:04] LABS: ALT/SGPT 65 U/L (7.0-40); AST/SGOT 39 U/L (<34); CALCIUM LEVEL 9.8 MG/DL (8.5-10.1); CARBON DIOXIDE LEVEL 29 MMOL/L (20-31); CHLORIDE LEVEL 100 MMOL/L (98-107); CHOLESTEROL LEVEL 181 MG/DL (<200); CHOLESTEROL RISK RATIO 2.56 (<5); CREATININE FOR GFR 0.84 MG/DL (0.70-1.30); GLOMERULAR FILTRATION RATE > 90.0 (>60); LDL CHOLESTEROL 96.9 MG/DL (<100); NON-HDL-C 110.5 MG/DL; POTASSIUM SERUM 4.4 MMOL/L (3.5-5.1); SODIUM LEVEL 139 MMOL/L (136-145); TRIGLYCERIDES LEVEL 68 MG/DL (<150)
[2025-03-01 14:34] LABS: ESTIMATED AVERAGE GLUCOSE 286.0 MG/DL (60-110)
== END ==
LOC: M LAB REF 12:57
PROVIDERS: ATTEND Family Medicine Addiction Medicine
DX: E11.69 Type 2 diabetes mellitus with other specified complication (principal)